=== PATIENT | female | born 1940 ===

== ENCOUNTER → 2018-08-05 13:34 | Outpatient (REF) | payer OTHER, SELFPAY ==
[2018-08-05 13:49] LABS: Add Manual Diff / Slide Review NO; Basophils Percent Auto 0.6 % (0-2); Eosinophils Percent Auto 1.7 % (2-4); Hematocrit 38.7 % (36-46); Hemoglobin 13.2 g/dL (12.0-16.0); Lymphocytes Percent Auto 27.4 % (25-40); Mean Corpuscular Hemoglobin 32.1 PG (26-34); Mean Corpuscular Volume 94.4 fL (80-100); Monocytes Percent Auto 10.2 % (3-14); Neutrophils Absolute Auto 4300 /uL (3000-5900); Neutrophils Percent Auto 60.1 % (50-75); Platelet Count 303 X10^3/uL (150-400); Red Cell Distribution Width 12.2 % (11.6-14.8); White Blood Cell Count 7.1 X10^3/uL (4.5-11.0)
[2018-08-05 14:13] LABS: Alanine Aminotransferase 27 IU/L (9-52); Albumin 4.7 g/dL (3.5-5.0); Albumin Globulin Ratio 1.6 (1.0-2.8); Alkaline Phosphatase 77 U/L (38-126); Aspartate Aminotransferase 24 IU/L (14-36); Bilirubin Total 0.5 mg/dL (0.2-1.3); Blood Urea Nitrogen 21 mg/dL (7-17); Calcium 10.7 mg/dL (8.4-10.2); Carbon Dioxide 32 mmol/L (22-32); Chloride 100 mmol/L (98-107); Cholesterol 173 mg/dL (140-199); Estimated Glomerular Filt Rate 53.6 mL/min (>60); Glucose 129 mg/dL (80-110); HDL Cholesterol 47 mg/dL (40-60); HEMOLYSIS < 15 (0-50); LDL Cholesterol Calculated 87 mg/dL (<100); Magnesium 1.8 mg/dL (1.6-2.3); Potassium 4.7 mmol/L (3.4-5.1); Sodium 147 mmol/L (137-145); Total Protein 7.7 g/dL (6.3-8.2); Triglycerides 193 mg/dL (35-150)
[2018-08-05 14:14] LABS: Hemoglobin A1C% w Est Avg Glu 6.3 % (4.0-6.0)
[2018-08-05 15:43] LABS: Vitamin D 25 Hydroxy (D3) 94.5 ng/mL (30.0-100.0)
[2018-08-05 17:16] LABS: Thyroid Stimulating Hormone 0.15 uIU/mL (0.47-4.68)
== END ==
LOC: LAB 13:34
PROVIDERS: Visit Provider Specialist
DX: I10 Essential (primary) hypertension (principal); K21.9 Gastro-esophageal reflux disease without esophagitis; M15.9 Polyosteoarthritis, unspecified; E11.9 Type 2 diabetes mellitus without complications
CPT/HCPCS: 36415; 80053; 80061; 82306; 83036; 83735; 84443; 85025

== ENCOUNTER → 2018-08-06 13:24 | Outpatient (REF) | payer OTHER, SELFPAY ==
[2018-08-06 14:57] LABS: Creatinine Urine Random 154.6 mg/dL
[2018-08-06 15:02] LABS: Microalbumi Creatinin Ratio Ur 12.9 ug/mg CR (<30)
== END ==
LOC: LAB 13:24
PROVIDERS: Visit Provider Specialist
DX: R80.9 Proteinuria, unspecified (principal)
CPT/HCPCS: 82043; 82570